=== PATIENT | male | born 1955 | race Caucasian/White ===

== ENCOUNTER → 2016-06-08 | Outpatient (CLI) | payer BC ==
[2016-06-08 09:04] LABS: BUN 18 mg/dL (7-18)
[2016-06-08 09:05] LABS: GFR (ESTIMATED) 56 ML/MIN (>60)
--- NOTE | 2016-06-08 19:32 | RADIOLOGY REPORT PS360 ---
CT ABD PELVIS W/ CONTRAST ORDERING PHYSICIAN : Emir Vicente MD PATIENT AGE: 60 years GENDER: Male INDICATION: EPIGASTRIC HERNIA TECHNIQUE: Helical CT scanning performed through abdomen and pelvis following 75 cc [id number] along with oral contrast. Sagittal and coronal reconstruction images in performed. COMPARISON: No previous studies for comparison FINDINGS Lung bases.. No focal pneumonia. There is mild basilar atelectasis most likely account for the mild accentuation of markings. Heart upper normal in size. Abdomen. Liver. Unremarkable no abnormal areas of enhancement Spleen unremarkable. Pancreas unremarkable. Adrenals unremarkable. Gallbladder unremarkable. No biliary ductal dilatation. Kidneys. No urinary tract calculi nor obstruction. No masses. The kidneys are comparable in size each measuring approximately 11.6 cm in length Ureters Normal course and caliber. Both within normal limits. No obstructing uropathy. Pelvis. Urinary bladder upper normal wall thickness. Prostate normal size and seminal vesicles unremarkable. No pelvic mass or adenopathy GI tract. Colon appears normal caliber with moderate stool right colon.:. Suggestion of a few diverticula throughout the sigmoid colon and left colon but no diverticulitis. Terminal ileum appears normal. Small bowel no bowel dilatation or obstruction.. Stomach. Prominent wall thickness at mid portion of the stomach. Merely reflect peristalsis. Correlation required clinically Abdominal wall. There is some motion artifact at the upper abdomen but we see no significant ventral hernia. There is some mild diastases throughout the upper abdomen umbilicus but no significant bulging here. Lumbar spine. Spondylosis and mild disc bulge at L5/S1 L4/5 and L3/4. Mild sclerotic changes iliac margin of both SI joints. Nonspecific but noted. IMPRESSION: No acute findings abdomen pelvis. Appendix normal . Note few diverticuli seen developing at sigmoid colon and possibly left colon but no diverticulitis.. No ventral hernia identified. Perhaps mild diffuse diastases superior to umbilicus - to the epigastric region. But no hernia evident Generous wall thickness at the mid stomach - could merely reflect contraction with lack of distention. However warrants clinical correlation and possibly further investigation, particularly if upper abdominal pain symptoms.
== END ==
LOC: RAD 08:48
PROVIDERS: Internal Medicine Adolescent Medicine
DX: K43.9 Ventral hernia without obstruction or gangrene (principal)
CPT/HCPCS: Q9967

== ENCOUNTER → 2017-02-11 | Outpatient (CLI) | payer BC ==
[2017-02-11 10:14] LABS: BUN 12 mg/dL (7-18)
[2017-02-11 10:17] LABS: GFR (ESTIMATED) 61 ML/MIN (>60)
== END ==
LOC: LAB 09:06
PROVIDERS: Nurse Practitioner Family
DX: I10 Essential (primary) hypertension (principal); M10.9 Gout, unspecified

== ENCOUNTER → 2017-04-22 | Outpatient (CLI) | payer BC ==
[2017-04-22 11:40] LABS: HEMOGLOBIN 15.4 g/dL (14.1-18.0); LYMPH % 8.9 % (10-50)
== END ==
LOC: LAB 11:22
PROVIDERS: Nurse Practitioner Family
DX: M10.9 Gout, unspecified (principal)